=== PATIENT | male | born 1935 | race Caucasian/White ===

== ENCOUNTER 2016-10-30 12:42 | Inpatient (IN) ==
[2016-10-30 13:59] LABS: MANUAL DIFF NEEDED? NO
[2016-10-30 14:05] LABS: BASO% 0.2 % (0.0-0.8); EOS# 0.04 X1000 (0.0-0.7); EOS% 0.3 % (0.0-10.0); HEMATOCRIT 41.4 % (42.0-52.0); HEMOGLOBIN 14.4 g/dL (14.0-18.0); IMM GRAN# 0.04 X1000 (0.0-0.04); IMM GRAN% 0.3 % (0.0-0.5); LYMPH# 1.89 X1000 (1.2-3.4); LYMPH% 12.9 % (20.5-51.1); MCH 30.2 PG (27-31); MCHC 34.8 g/dL (33-37); MCV 86.8 FL (81-99); MONO# 1.62 X1000 (0.11-0.59); MONO% 11.1 % (1.7-9.3); MPV 9.5 FL (7.4-10.4); NEUT% 75.2 % (42.2-75.2); PLT 209 X1000 (130-400); RBC 4.77 XMIL (4.7-6.1)
--- NOTE | 2016-10-30 14:05 | Diag Imaging Result Doc PS360 ---
KNEE 3 VIEWS LEFT - 10/30/2016 INDICATION: fall with left knee injury TECHNIQUE: COMPARISON: None FINDINGS: There is a huge joint effusion. There is significant chondrocalcinosis of the menisci. Alignment is anatomic. No obvious fractures. Joint spaces are fairly well preserved. IMPRESSION: Huge nonspecific joint effusion. This could represent internal derangement, inflammatory arthritis, gout or pseudogout, septic arthritis, or neoplastic conditions. Correlate clinically. Electronically signed by Jorge Guadalupe 10/30/2016 2:03 PM
--- NOTE | 2016-10-30 14:06 | Diag Imaging Result Doc PS360 ---
ANKLE COMPLETE LEFT - 10/30/2016 INDICATION: fall with left ankle injury TECHNIQUE: Three views COMPARISON: None FINDINGS: There are bulky degenerative heel spurs. No obvious fracture or dislocation. There is some mild nonspecific pedal edema. IMPRESSION: Nonspecific findings. Electronically signed by Jorge Guadalupe 10/30/2016 2:04 PM
--- NOTE | 2016-10-30 14:07 | Diag Imaging Result Doc PS360 ---
XRAY HIP UNILATERAL LT - 10/30/2016 INDICATION: fall with left hip injury TECHNIQUE: Two views COMPARISON: None FINDINGS: Bones are intact and normally aligned. There is advanced vascular disease with superficial femoral artery calcification. There is mild hip osteoarthritis. IMPRESSION: No acute disease. Electronically signed by Jorge Guadalupe 10/30/2016 2:04 PM
--- NOTE | 2016-10-30 14:10 | PROVIDER DOCUMENTATION ---
This chart was entered by Sachi Jaramillo Scribe, acting as scribe for Vic Edwards MD. HPI-Musculoskeletal Pain/Inj - GENERAL Chief Complaint: Fall Stated Complaint: FALL Time Seen by Provider: 10/30/16 12:53 Source: patient - HX OF PRESENT ILLNESS-MUSKULOSKELTAL Nature of Presenting Problem: 81 year old male presents to the ER via EMS with complaint of leg injury due to fall. Pt states that he tripped over a rug yesterday and landed on left side of lower body. Pt is unable to put any weight on left lower extremity. Pt has swelling of left knee and left ankle. Onset/Duration: 24 hours ago Timing: still present - FALL INJURY Location of Pain/Injury: reports: lower extremity (left - knee/ankle) Injury Associated Symptoms: reports: joint pain (left knee effusion/swelling of left ankle), trouble walking - LOWER EXTREMITY PAIN/INJURY Lower Extremities Pain: knee: right, ankle: right Review of Systems - Adult - REVIEW OF SYSTEMS - ADULT Constitutional: denies: chills, fever Eyes: reports: no symptoms reported Ears, Nose, Mouth & Throat: reports: no symptoms reported Cardiovascular: reports: no symptoms reported Respiratory: reports: no symptoms reported Gastrointestinal: reports: no symptoms reported Genitourinary: reports: no symptoms reported Musculoskeletal: reports: joint pain, joint swelling (left knee/left ankle) Integumentary: reports: no symptoms reported Neurological: reports: no symptoms reported Psychiatric: reports: no symptoms reported Endocrine: reports: no symptoms reported Hematologic/Lymphatic: reports: no symptoms reported Allergic/Immunologic: reports: no symptoms reported All Other Systems: Reviewed and Negative Past History - Adult - PAST MEDICAL HISTORY-ADULT Review of Records: reports: Nursing Assessment Review, Medications Reviewed - IMMUNIZATION STATUS Childhood Immunizations: See Nurse Assessment Flu Vaccine: See Nurse Assessment Physical Exam-Injury Related - Physical Exam-Injury Related General Appearance: alert, no apparent distress Eyes: PERRL/EOMI, pink conjunctivae Head, Ears, Nose, Mouth & Throat: normocephalic/atraumatic, moist mucous membranes Neck: supple, normal inspection Respiratory: lungs clear, normal breath sounds Cardiovascular: normal peripheral pulses, regular rate, rhythm Abdominal Exam: non tender, soft Back Exam: no CVA tenderness, no vertebral tenderness Extremity: joint effusion (left knee), swelling (left ankle) Integumentary: normal color, warm/dry Neurologic: grossly normal, no motor/sensory deficits Psych/Mental Status: normal mood/affect, normal thought content, normal thought process, oriented x 3 Progress - PLAN OF CARE/RESULTS Progress/Plan/Lab Results: Vital Signs - 8 hr 10/30/16 12:45 Temperature 97.9 F Pulse Rate 75 Respiratory Rate 25 H Blood Pressure 174/86 O2 Sat by Pulse Oximetry 95 Laboratory Results - last 24 hr 10/30/16 13:48 WBC 14.65 H RBC 4.77 Hgb 14.4 Hct 41.4 L MCV 86.8 MCH 30.2 MCHC 34.8 RDW Std Deviation 14.1 Plt Count 209 MPV 9.5 Immature Gran % (Auto) 0.3 Neut % (Auto) 75.2 Lymph % (Auto) 12.9 L [place] % (Auto) 11.1 H Eos % (Auto) 0.3 Baso % (Auto) 0.2 Immature Gran # (Auto) 0.04 Neut # (Auto) 11.03 H Lymph # (Auto) 1.89 [place] # (Auto) 1.62 H Eos # (Auto) 0.04 Baso # (Auto) 0.03 Orders Category Date Time Status ANKLE COMPLETE LEFT [RAD] Stat Exams 10/30/16 13:13 Completed KNEE 3 VIEWS LEFT [RAD] Stat Exams 10/30/16 13:12 Completed XRAY HIP UNILATERAL LT [RAD] Stat Exams 10/30/16 13:14 Completed CBC WITH DIFF [HEME] Stat Lab 10/30/16 13:48 Completed CMP [COMPREHENSIVE METABOLIC PANEL] [CHEM] Stat Lab 10/30/16 13:48 Received Result Diagrams: 10/30/16 13:48 - CONSULTS/PCP/HOSPITALIST Notification #1 *Consult/PCP/Hospitalist*: Dr. Dockery ([facility]) Time Discussed: 14:08 Consult Disposition: Will see in ED - CHANGE OF SHIFT REPORT (ED Provider) Report Given and Care Transferred to:: Discussed this patient with Dr. St also. Departure - Departure Date of Disposition Decision: 10/30/16 Time of Disposition Decision: 14:08 DIAGNOSIS: Traumatic joint effusion Disposition: STILL A PATIENT 30 Certified Medical Emergency: Emergent Condition: Good Referrals and Follow-Ups: Perez Acosta [Primary Care Provider] - - Critical Care Note This patient required my direct & personal management of CC.: No This chart was documented by the indicated scribe, (Sachi Jaramillo, Scribe) and accurately reflects the services I performed and decisions made by me, Vic Edwards MD, as attested by the provider's signature.
[2016-10-30 14:25] LABS: AGAP 14; ALBUMIN 3.7 g/dL (3.5-5.0); ALKALINE PHOSPHATASE 101 U/L (32-122); BUN 13 mg/dL (8-22); CHLORIDE 94 mmol/L (98-107); COSMO 268; GOT 13 U/L (10-34); GPT 12 U/L (10-44); POTASSIUM 4.5 mmol/L (3.5-5.1); SODIUM 130 mmol/L (136-145); TCO2 22 mmol/L (25-35); TOTAL BILIRUBIN 0.72 mg/dL (0.20-1.00); TOTAL PROTEIN 6.8 g/dL (6.3-8.3)
[2016-10-30] MEDS: NORCO-7.5 PO ONE ×2 (14:25→16:40)
[2016-10-30] MEDS ORDERED: DILAUDID IV ONE (15:21)
--- NOTE | 2016-10-30 16:06 | HISTORY AND PHYSICAL ---
PRIMARY CARE PHYSICIAN: Dr. Acosta. CHIEF COMPLAINT: Knee pain after a fall. HISTORY OF PRESENT ILLNESS: Mr. Mandel is a 81-year-old male with a past medical history of diabetes, high blood pressure, coronary artery disease, diabetic neuropathy and peripheral vascular disease who presents to the ER at date of admission after having a fall prior to arrival. He reports that with a fall, he did slip, he did not lose consciousness or have a syncopal episode. He slipped on a rug and fell backwards causing an awkward movement and strain of his left knee. He did not land on his knee, he landed on his right hip, but continues to have pain to the left knee with a large amount of swelling as well with limited mobility. He was evaluated in the ER and is unable to provide pain control with the p.o. medications that have been given or the morphine by EMS, and had x-ray images which did not show a fracture, but does also corroborate with a huge joint effusion and therefore, patient will be admitted for further evaluation and treatment and orthopedic will be consulted for possible arthrocentesis and evaluation and for pain control. PAST MEDICAL HISTORY: 1. Diabetes. 2. Hypertension. 3. Coronary artery disease. 4. Neuropathy. 5. Diabetic retinopathy. 6. Peripheral vascular disease. 7. Questionable gout. Patient is on allopurinol, but denied history of gout. PAST SURGICAL HISTORY: 1. Cholecystectomy. 2. Right knee arthroscopy. 3. Cyst removed from his back. SOCIAL HISTORY: Patient smokes a pack and a half a day. He denies any alcohol or drug use. He does live with his . FAMILY HISTORY: His father did have a history of gout. ALLERGIES: No known drug allergies. MEDICATIONS: 1. Tramadol 100 mg p.o. q.4 hours p.r.n. pain. 2. Janumet 50-500 1 p.o. b.i.d. 3. Pentoxifylline 400 mg p.o. t.i.d. 4. Toprol-XL 50 mg p.o. daily. 5. Lisinopril 20 mg p.o. daily. 6. Isosorbide 30 mg p.o. daily. 7. Levemir 40 units subcutaneously at bedtime. 8. Glimepiride 4 mg p.o. daily. 9. Vytorin 10-10, 1 p.o. daily. 10. Plavix 75 mg p.o. daily. 11. Aspirin 81 mg p.o. daily. 12. Allopurinol 100 mg p.o. daily. 13. Lipitor 10 mg p.o. daily. REVIEW OF SYSTEMS: Ten point review of system reviewed and negative other than as stated in HPI. LABORATORIES AND DIAGNOSTICS: CBC: White count 14.65, hemoglobin and hematocrit 14.4 and 41.4, platelets 209,000. BMP: Sodium 130, potassium 4.5, chloride 94, CO2 22, BUN 13, creatinine 0.6, glucose 226, LFTs within normal limits. Left knee x-ray showed a hug nonspecific joint effusion that could represent internal derangement, inflammatory arthritis, gout or pseudogout, septic arthritis or neoplastic conditions, but correlate clinically. Left ankle x-ray showed nonspecific findings and left hip x-ray showed some arthritis, but no acute abnormality. PHYSICAL EXAMINATION: VITAL SIGNS: Temperature 97.9 degrees, pulse 75, respirations 25, blood pressure 174/86, O2 saturation 95% on room air. HEENT: Normocephalic, atraumatic. Mucous membranes moist. NECK: Supple. No JVD. CHEST: Bilateral breath sounds clear. Respirations unlabored. No accessory muscle use noted. CARDIOVASCULAR: Normal S1, S2. ABDOMEN: Abdomen is soft, nontender, nondistended. Positive bowel sounds. EXTREMITIES: Large effusion with limited mobility to left knee. Mild warmth, but no other discoloration noted. Pedal pulses palpated. Slightly delayed capillary refill with history of peripheral vascular disease. Right elbow with superficial abrasions and skin tear, but no difficulty with range of motion or other extremity injuries. NEUROLOGIC: Patient is alert and oriented x4. No neurological deficits noted. ASSESSMENT AND PLAN: 1. Left knee effusion. I will consult Orthopedics for possible arthrocentesis for evaluation and treatment. 2. Fall. We will place patient on fall precautions and continue to follow. May need physical therapy. 3. Significant knee pain and changes with x-ray. The question is if this is related to traumatic effusion. he does take allopurinol which he denies a known history of gout and he also has several nodularities to his distal interphalangeal and proximal interphalangeal joints with his hand, and has a family history of gouty arthritis. We will go ahead and check several other causes of inflammatory arthritis as well. 4. Hypertension. We will continue his medications. 5. Diabetes. We will continue his medications and place on sliding scale insulin. 6. Hyponatremia. We will give IV hydration. 7. Leukocytosis. We will continue to follow. He has not had any fever or chills and this all was related after the injury. 8. Coronary artery disease. Patient is on Plavix which could cause a worsening effusion to his knee. 9. Family history of gout. Aware. Further orders pending physician evaluation. Dictated by CHAVEZ Villrareal for Satish Guardado MD cc: CHAVEZ Villarreal MD
[2016-10-30] MEDS: ZOFRAN IV PRN (16:39)
[2016-10-30] MEDS ORDERED: ZOFRAN IV PRN (16:55)
[2016-10-30 17:24] LABS: URIC ACID 2.7 mg/dL (3.4-7.0)
[2016-10-30] MEDS: HUMULIN R SUBQ SCH ×2 (18:16→21:30)
[2016-10-30] MEDS: TRENTAL PO SCH (18:17)
[2016-10-30] MEDS: NS 1,000 ML IV SCH (18:17)
[2016-10-30] MEDS: LOVENOX SUBQ SCH (18:18)
[2016-10-30] MEDS: NORCO-10 PO PRN (21:48)
[2016-10-30] MEDS: LEVEMIR SUBQ SCH (21:55)
[2016-10-31] MEDS: HUMULIN R SUBQ SCH ×4 (06:24→21:09)
[2016-10-31 06:39] LABS: HEMATOCRIT 43.5 % (42.0-52.0); HEMOGLOBIN 14.3 g/dL (14.0-18.0); MCH 29.8 PG (27-31); MCHC 32.9 g/dL (33-37); MCV 90.6 FL (81-99); MPV 9.4 FL (7.4-10.4); RBC 4.8 XMIL (4.7-6.1)
[2016-10-31 06:44] LABS: INR 1.06; PROTIME 11.2 Seconds (9.2-11.7); PTT 31.9 Seconds (22.0-36.0)
[2016-10-31 06:59] LABS: AGAP 12; BUN 11 mg/dL (8-22); CALCIUM 9.1 mg/dL (8.8-10.2); CHLORIDE 94 mmol/L (98-107); COSMO 267; POTASSIUM 4.5 mmol/L (3.5-5.1); SODIUM 132 mmol/L (136-145); TCO2 26 mmol/L (25-35)
[2016-10-31] MEDS: NS 1,000 ML IV SCH ×2 (08:26→23:24)
[2016-10-31] MEDS: TOPROL XL PO SCH (08:27)
[2016-10-31] MEDS: ZETIA PO SCH (08:27)
[2016-10-31] MEDS: IMDUR PO SCH (08:27)
[2016-10-31] MEDS: PLAVIX PO SCH (08:27)
[2016-10-31] MEDS: TRENTAL PO SCH ×3 (08:27→18:04)
[2016-10-31] MEDS: ZYLOPRIM PO SCH (08:27)
[2016-10-31] MEDS: PRINIVIL PO SCH (08:27)
[2016-10-31] MEDS: ZOCOR PO SCH (08:27)
[2016-10-31] MEDS: LIPITOR PO SCH (08:27)
[2016-10-31] MEDS: ASPIRIN EC PO SCH (08:27)
[2016-10-31] MEDS ORDERED: EZETIMIBE PO SCH (09:00)
[2016-10-31] MEDS ORDERED: SIMVASTATIN PO SCH (09:00)
[2016-10-31] MEDS: DILAUDID IV PRN (11:24)
[2016-10-31] MEDS: ZOFRAN IV PRN (11:24)
--- NOTE | 2016-10-31 16:42 | PROGRESS NOTE ---
DATE: 10/31/2016 SUBJECTIVE: This patient is still complaining of left knee pain and swelling. Otherwise, he is alert and oriented x3. No focal neurological deficits. This patient states that yesterday he was walking and he fell and hit his left knee and left ankle. Orthopedic surgery has been consulted for this. OBJECTIVE: Vital Signs: Temperature 98.9 degrees, pulse 79, respiratory rate 20, blood pressure 141/59, oxygen saturation 93 on room air. HEENT: Head normocephalic. No trauma. PERRLA. Neck: Supple. No JVD. No masses. Central trachea. Chest: Clear to auscultation. No wheezing. No rales. Abdomen: Soft, nontender, nondistended. No hepatosplenomegaly. Extremities: Left knee and ankle swelling. No clubbing. No cyanosis. Neurological: The patient is alert and oriented x3. No focal deficits. LABORATORY: WBC 11.8, hemoglobin 14.3, platelet 179,000. Sodium 132, potassium 4.5, chloride 94, bicarbonate 26, BUN 11, creatinine 0.7, glucose 153, calcium 9.1. ASSESSMENT AND PLAN: 1. Left knee swelling. Orthopedic surgery has been consulted. Probably this patient will need an arthrocentesis. 2. Hypertension. Continue with his medications. 3. Diabetes. Continue with his medications and sliding scale insulin. 4. Hyponatremia. Continue with IV fluids. This is getting better. 5. Leukocytosis. Also is getting better. He is not receiving any antibiotics. Likely reactive. 6. History of coronary artery disease. Patient is on aspirin. Also this patient is on Plavix and this is likely secondary to peripheral vascular disease. 7. Peripheral vascular disease. As above. 8. Family history of gout. Aware. cc: Satish Guardado MD
[2016-10-31] MEDS: LOVENOX SUBQ SCH (18:04)
--- NOTE | 2016-10-31 18:14 | CONSULTATION ---
DATE OF CONSULTATION: 10/31/2016 HISTORY OF PRESENT ILLNESS: Ruben Mandel is a 81-year-old male who complains of left hip, knee and ankle pain with a left knee effusion. He complains of inability to weight bear. PHYSICAL EXAMINATION: General: Well-developed, well-nourished male. He is alert and cooperative. Hip: Examination reveals mild pain with range of motion of his hip and ankle. He has a large effusion of his left knee and pain with range of motion. X-rays of his hip and ankle show no significant abnormalities and some mild degenerative changes. X-rays of his knee show chondrocalcinosis and a large knee effusion. IMPRESSION: Left leg contusion with effusion overlying osteoarthritis of the left knee. PLAN: Today I have aspirated his knee and removed approximately 50 mL of bloody fluid. We will get physical therapy to work on him for range of motion and weightbearing. He may need to go to rehab. cc: Angel Singh MD
[2016-10-31] MEDS ORDERED: TUMS PO ONE (20:36)
[2016-11-01] MEDS: LEVEMIR SUBQ SCH ×2 (02:49→21:02)
[2016-11-01 05:49] LABS: MANUAL DIFF NEEDED? NO
[2016-11-01 05:58] LABS: BASO% 0.4 % (0.0-0.8); EOS# 0.02 X1000 (0.0-0.7); EOS% 0.2 % (0.0-10.0); HEMOGLOBIN 14.2 g/dL (14.0-18.0); IMM GRAN# 0.05 X1000 (0.0-0.04); IMM GRAN% 0.4 % (0.0-0.5); LYMPH# 1.29 X1000 (1.2-3.4); LYMPH% 10.5 % (20.5-51.1); MCH 29.3 PG (27-31); MCV 88.8 FL (81-99); MONO# 1.99 X1000 (0.11-0.59); MONO% 16.2 % (1.7-9.3); MPV 9.4 FL (7.4-10.4); NEUT% 72.3 % (42.2-75.2); PLT 181 X1000 (130-400); RBC 4.84 XMIL (4.7-6.1)
[2016-11-01 06:09] LABS: AGAP 16; BUN 10 mg/dL (8-22); CALCIUM 9.1 mg/dL (8.8-10.2); CHLORIDE 95 mmol/L (98-107); COSMO 270; POTASSIUM 4.3 mmol/L (3.5-5.1); SODIUM 133 mmol/L (136-145); TCO2 22 mmol/L (25-35)
[2016-11-01] MEDS: HUMULIN R SUBQ SCH ×4 (06:22→21:02)
[2016-11-01] MEDS ORDERED: TUMS PO ONE (06:23)
[2016-11-01] MEDS: DILAUDID IV PRN ×2 (06:30→19:15)
[2016-11-01] MEDS: ASPIRIN EC PO SCH (08:14)
[2016-11-01] MEDS: LIPITOR PO SCH (08:14)
[2016-11-01] MEDS: ZYLOPRIM PO SCH (08:15)
[2016-11-01] MEDS: ZETIA PO SCH (08:16)
[2016-11-01] MEDS: IMDUR PO SCH (08:16)
[2016-11-01] MEDS: PRINIVIL PO SCH (08:17)
[2016-11-01] MEDS: TOPROL XL PO SCH (08:17)
[2016-11-01] MEDS: ZOCOR PO SCH (08:17)
[2016-11-01] MEDS: PLAVIX PO SCH (08:17)
[2016-11-01] MEDS: TRENTAL PO SCH ×3 (08:17→18:11)
[2016-11-01] MEDS: ZOSYN 3.375 GM/NS 3.375 GM/50 ML IVPB IV SCH ×3 (08:34→21:02)
[2016-11-01] MEDS: NS 1,000 ML IV SCH ×2 (08:35→22:21)
[2016-11-01] MEDS ORDERED: G.I. COCKTAIL PO ONE (11:50)
[2016-11-01] MEDS ORDERED: DULCOLAX PR ONE (11:51)
[2016-11-01] MEDS: MIRALAX PO SCH ×2 (13:15→21:08)
--- NOTE | 2016-11-01 14:05 | Diag Imaging Result Doc PS360 ---
EXAM: THORAX/ABDOMEN/PELVIS W/O CONT INDICATION: leukocytosis TECHNIQUE: COMPARISON: CT abdomen and pelvis dated 03/10/2015. No prior chest CT is available for comparison. FINDINGS: CHEST: There is bilateral pulmonary emphysema with apical predominance. There are several calcified granulomata bilaterally. There is bibasilar scarring versus subsegmental atelectasis. The lungs are grossly clear, otherwise. There is no pleural fluid collection and no pneumothorax. There are multiple calcified mediastinal and hilar lymph nodes indicating prior granulomatous disease. There is no evidence of significant lymphadenopathy, otherwise. The heart is not enlarged. ABDOMEN/PELVIS: There are multiple calcified granulomata in the liver and spleen. There has been a previous cholecystectomy. The liver and spleen are grossly unremarkable, otherwise. The pancreas appears normal. The adrenal glands are unremarkable. There is a stable small left renal cyst. There are a few nonobstructing intrarenal stones at the medial aspect of the left kidney versus vascular calcifications. There is no hydronephrosis. The urinary bladder is unremarkable. The appendix is normal. There is no evidence of bowel obstruction. The remainder of the GI tract is essentially unremarkable. No focal inflammatory changes, free abdominal gas, or free fluid is appreciated. There are degenerative changes involving the spine. Bony structures are grossly intact, otherwise. IMPRESSION: 1.Pulmonary emphysema and bibasilar scarring and/or atelectasis but no evidence of acute chest pathology. 2.Incidental/nonacute abdominal and pelvic findings. No evidence of acute pathology. Electronically signed by Vladimir Kemp 11/01/2016 2:02 PM
--- NOTE | 2016-11-01 14:11 | Diag Imaging Result Doc PS360 ---
EXAM: EXTREM LOWER W/O CONTRAST INDICATION: left knee swelling/effusion TECHNIQUE: COMPARISON: None. FINDINGS: There is a moderate-sized joint effusion. There is extensive chondrocalcinosis. Although nonspecific, this is often associated with calcium pyrophosphate deposition disease (CPPD). There is a prominent popliteal cyst. There are degenerative subcortical cysts at the medial tibial plateau. There are at least mild degenerative changes at the patellofemoral compartment as well. There is no evidence of acute fracture, dislocation, or intrinsic osseous lesion, otherwise. IMPRESSION: 1.Extensive chondrocalcinosis, which is often associated with CPPD. 2.Degenerative arthropathy, mainly at the medial and patellofemoral compartments. 3.Moderate-sized joint effusion. Electronically signed by Vladimir Kemp 11/01/2016 2:09 PM
[2016-11-01] MEDS: ZOFRAN IV PRN ×2 (15:09→19:16)
--- NOTE | 2016-11-01 15:19 | PROGRESS NOTE ---
DATE: 11/01/2016 SUBJECTIVE: The patient complains of continued pain in his left knee. He had the left knee aspirated yesterday. He states that he can barely put weight on it and it still swollen this morning. OBJECTIVE: Vital Signs: Temperature. 98.3, blood pressure 124/63, heart rate 91, respirations 18, O2 saturations 96% on room air. General: This is an elderly female, lying in bed, in no acute distress. Head: Normocephalic, atraumatic. Heart: S1, S2. Normal. Tachycardic. Lungs: Clear to auscultation bilaterally. No wheezing. No rales. No rhonchi. Abdomen: Positive bowel sounds. Soft, nontender, nondistended. Extremities: The patient does have an effusion in the left knee. Neurologic: The patient is alert and oriented x3. LABORATORY: White blood cell count 12, hemoglobin 14, hematocrit 43, platelets 181,000. Sodium 133, potassium 4.3, chloride 95, CO2 22, BUN 10, creatinine 0.6, glucose 179. IMAGING: CT of the left lower extremity reveals a moderate-sized left knee effusion and extensive chondrocalcinosis. CT of the chest, abdomen, and pelvis reveals emphysema and bibasilar scarring. ASSESSMENT AND PLAN: 1. Moderate left knee effusion. The patient had joint aspiration done yesterday. The patient continues to complain of pain and swelling in his left knee. We will await further recommendations from the orthopedic surgeon. I will go ahead and start the patient on IV antibiotic therapy due to the leukocytosis. 2. Gastroesophageal reflux disease. We will start the patient on omeprazole. 3. Constipation. We will start the patient on scheduled laxative therapy. 4. Emphysema. Aware. 5. Diabetes mellitus type 2. Continue on Levemir plus sliding scale insulin. 6. Hypertension. Controlled. 7. History of gout. The patient's uric acid is 2.7. We will continue to monitor closely. Continue on allopurinol. 8. Continue with physical therapy. cc: Brii Hudson MD
--- NOTE | 2016-11-01 16:18 | PROGRESS NOTE ---
DATE: 11/01/2016 SUBJECTIVE: Mr. Mandel is a 81-year-old male who is 2 days post aspiration of his left knee. He states he has continued pain and his knee is still swollen and stiff. Otherwise he is doing well. OBJECTIVE: On physical examination, he is a well-developed, well-nourished male. He is alert and cooperative with examination. He has an effusion of his left knee but it is very mild. He has limited range of motion of his left knee due to pain. His left leg is neurovascularly intact. IMPRESSION: Left leg contusion with effusion. Overlying osteoarthritis of left knee. PLAN: We will continue working with him with Physical Therapy for range of motion of his left knee and for weightbearing. We will continue to monitor his knee. Dictated by FARAZ Smith for Angel Singh MD cc: FARAZ Smith MD
[2016-11-01] MEDS: LOVENOX SUBQ SCH (18:11)
[2016-11-01 18:46] LABS: URINE CULTURE NEEDED? NO; URINE MICRO REVIEW NEEDED? NO; URINE SOURCE CLEAN CATCH
[2016-11-01 18:58] LABS: BILIRUBIN URINE NEGATIVE (NEGATIVE); BLOOD URINE MODERATE (NEGATIVE); COLOR YELLOW; GLUCOSE URINE >1000 mg/dL (NEGATIVE); LEUKOCYTES URINE NEGATIVE (NEGATIVE); NITRITE URINE NEGATIVE (NEGATIVE); PROTEIN URINE 50 mg/dL (NEGATIVE); SP GRAVITY URINE 1.031; TURBIDITY URINE CLEAR (CLEAR); UROBILINOGEN URINE NORMAL (NORMAL)
[2016-11-01 19:00] LABS: UR EPITHELIAL CELLS <10 /HPF (<10); URINE BACTERIA NEGATIVE /HPF; URINE WBC <10 /HPF (<10)
[2016-11-01] MEDS: SENOKOT PO SCH (21:03)
[2016-11-02] MEDS: NS 1,000 ML IV SCH (01:18)
[2016-11-02] MEDS: ZOSYN 3.375 GM/NS 3.375 GM/50 ML IVPB IV SCH ×3 (01:59→15:02)
[2016-11-02 05:52] LABS: MANUAL DIFF NEEDED? NO
[2016-11-02 05:55] LABS: BASO% 0.2 % (0.0-0.8); EOS# 0.01 X1000 (0.0-0.7); EOS% 0.1 % (0.0-10.0); HEMATOCRIT 43.4 % (42.0-52.0); HEMOGLOBIN 14.4 g/dL (14.0-18.0); IMM GRAN# 0.03 X1000 (0.0-0.04); IMM GRAN% 0.2 % (0.0-0.5); LYMPH# 1.39 X1000 (1.2-3.4); LYMPH% 9.4 % (20.5-51.1); MCH 29.5 PG (27-31); MCHC 33.2 g/dL (33-37); MCV 88.9 FL (81-99); MONO# 1.83 X1000 (0.11-0.59); MONO% 12.4 % (1.7-9.3); MPV 9.6 FL (7.4-10.4); NEUT% 77.7 % (42.2-75.2); PLT 230 X1000 (130-400); RBC 4.88 XMIL (4.7-6.1)
[2016-11-02 06:15] LABS: AGAP 15; BUN 20 mg/dL (8-22); CALCIUM 8.9 mg/dL (8.8-10.2); CHLORIDE 98 mmol/L (98-107); COSMO 280; SODIUM 136 mmol/L (136-145); TCO2 23 mmol/L (25-35)
[2016-11-02] MEDS: HUMULIN R SUBQ SCH ×4 (06:38→20:38)
[2016-11-02] MEDS: PRILOSEC PO SCH (06:50)
[2016-11-02] MEDS: ZOFRAN IV PRN ×2 (07:42→11:37)
--- NOTE | 2016-11-02 08:07 | Diag Imaging Result Doc PS360 ---
EXAM: CHEST-PORTABLE - 11/02/2016 HISTORY: chest tightness/ shortness of breath TECHNIQUE: Portable chest 0800 COMPARISON: None. FINDINGS: Heart size is normal. There is mild elevation of the left hemidiaphragm. There are possible COPD changes. 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 There is minimal linear atelectasis or scarring at the left base. There is no consolidation, vascular congestion, pleural effusion, or pneumothorax identified. IMPRESSION: Apparent COPD. Mild elevation of left hemidiaphragm with minimal left basilar linear atelectasis or scarring. No other evidence of acute disease. Electronically signed by Moiz Morales 11/02/2016 8:05 AM
[2016-11-02 08:12] LABS: ALLEN TEST YES; BE -1.7 mmoll (-3.0-3.0); BLOOD TYPE ARTERIAL; DRAW SITE R RADIAL; METHB 0.7 % (0.0-1.5); O2(CT) 19.3 mL/dL (15.0-23.0); PCO2(98.6) 34 mmHg (35-45); PO2(98.6) 69 mmHg (60-100); SAMPLE BLOOD; SAO2 96.3 % (95.0-100.0); THB 14.7 g/dL (11.5-17.4); pH(98.6) 7.42 (7.35-7.45)
[2016-11-02 08:14] LABS: MODALITY CANNULA
[2016-11-02] MEDS: TRENTAL PO SCH ×3 (10:08→17:42)
--- NOTE | 2016-11-02 10:31 | EKG Report ---
Test Performed on : 11/02/2016 08:02:04 AM Test Reason : chest tightness/ shortness of breath Blood Pressure : / mmHG Vent. Rate : 092 BPM Atrial Rate : 092 BPM P-R Int : 136 ms QRS Dur : 092 ms QT Int : 396 ms P-R-T Axes : 078 054 097 degrees QTc Int : 489 ms Normal sinus rhythm. Nonspecific ST and T wave abnormality Prolonged QT Abnormal ECG When compared with ECG of 21-OCT-2010 10:10, ST now depressed in Anterior leads Nonspecific T wave abnormality now evident in Anterolateral leads Confirmed by Roz Goins MD ([id number]) on 11/02/2016 1:40:45 PM
[2016-11-02] MEDS ORDERED: DULCOLAX PR ONE (11:24)
--- NOTE | 2016-11-02 11:42 | PROGRESS NOTE ---
DATE: 11/02/2016 SUBJECTIVE: Mr. Mandel is a 81-year-old male, who is 3 days postop aspiration of his left knee. Today he states he is doing much better. He is able to move his knee better. OBJECTIVE: General: He is a well developed, well nourished male. He is alert and cooperative with the examination. He is in no acute distress. Extremities: He has an effusion of his left knee. It is very mild and has improved. He has improved range of motion of his left knee. His left leg is neurovascularly intact. IMPRESSION: Left leg contusion with infusion with overlying osteoarthritis of the left knee. PLAN: We will continue working with him with physical therapy for range of motion of his left knee. He can be transferred to rehab or home whenever he is medically stable. We will have him follow up with Dr. Singh in 2 weeks for follow up examination. Dictated by FARAZ Smith for Angel Singh MD cc: FARAZ Smith MD
[2016-11-02] MEDS ORDERED: MIRALAX PO ONE ×2 (13:41→15:15)
[2016-11-02] MEDS ORDERED: RELISTOR SUBQ ONE (13:42)
[2016-11-02] MEDS: MIRALAX PO SCH ×2 (15:05→20:39)
[2016-11-02] MEDS: LACTULOSE PO SCH ×3 (15:07→20:45)
[2016-11-02] MEDS: IMDUR PO SCH (15:11)
[2016-11-02] MEDS: PRINIVIL PO SCH (15:11)
[2016-11-02] MEDS: TOPROL XL PO SCH (15:11)
[2016-11-02] MEDS: ASPIRIN EC PO SCH (15:11)
[2016-11-02] MEDS: ZYLOPRIM PO SCH (15:12)
[2016-11-02] MEDS: PLAVIX PO SCH (15:12)
[2016-11-02] MEDS: ZOCOR PO SCH (15:12)
[2016-11-02] MEDS: ZETIA PO SCH (15:12)
[2016-11-02] MEDS: LIPITOR PO SCH (15:12)
--- NOTE | 2016-11-02 15:56 | PROGRESS NOTE ---
DATE: 11/02/2016 SUBJECTIVE: The patient states that the pain in his left knee he is a lot better today. However he does complain of nausea and vomiting. He states that he still has not had a bowel movement despite receiving oral laxatives. OBJECTIVE: Vital Signs: Temperature 98.5 degrees, blood pressure 152/50, heart rate 95, respirations 19, O2 saturations 96% on 2 L nasal cannula. General: This is an elderly male lying in bed in no acute distress. Head: Normocephalic, atraumatic. Heart: S1, S2. Normal. Regular rate and rhythm. Lungs: Clear to auscultation bilaterally. No crackles. No rales. Abdomen: Positive bowel sounds. Soft, nontender, nondistended. Extremities: The patient does have swelling involving the left knee. Neurologic: The patient is alert and oriented x3. LABS: White blood cell count 14, hemoglobin 14, hematocrit 43, platelets 230,000. Sodium 136, potassium 4, chloride 98, CO2 23, BUN 20, creatinine 0.6, glucose 189, calcium 8.9. ASSESSMENT AND PLAN: 1. Left knee effusion. Slowly improving. Continue with physical therapy. 2. Leukocytosis. The patient does not have an active source of infection so this may be reactive in nature. Will discontinue the Zosyn and repeat the patient's white blood cell count tomorrow. 3. Constipation. Continue with scheduled laxative therapy. Will ask Dr. Liao to see the patient for further recommendations. 4. Diabetes mellitus type 2. Continue on sliding scale insulin. 5. Gastroesophageal reflux disease. Continue on Prilosec. 6. History of gout. Continue on allopurinol. 7. Continue with physical therapy. 8. Disposition. The patient will be discharged to rehab once a bed is available and the patient is medically stable. cc: Brii Hudson MD
--- NOTE | 2016-11-02 16:41 | Diag Imaging Result Doc PS360 ---
EXAM: KUB ABDOMEN - 11/02/2016 HISTORY: constipation, n/v TECHNIQUE: Portable AP supine abdomen 1436 COMPARISON: None. FINDINGS: There is some gas visible in nondistended colon. There is gas visible within a couple of nondistended to slightly distended small bowel loops. There is no substantial gaseous small bowel distention identified. There is no obvious excessive retained fecal debris in the colon. There are surgical clips at the right upper quadrant. IMPRESSION: Nonspecific bowel gas pattern. No obvious excessive retained fecal debris in the colon. Electronically signed by Moiz Morales 11/02/2016 4:39 PM
[2016-11-02] MEDS: LOVENOX SUBQ SCH (17:42)
[2016-11-02] MEDS: LEVEMIR SUBQ SCH (20:38)
[2016-11-02] MEDS: SENOKOT PO SCH ×2 (20:39→20:45)
[2016-11-02] MEDS: DILAUDID IV PRN (20:46)
[2016-11-03] MEDS: PRILOSEC PO SCH ×2 (05:36→07:41)
[2016-11-03 05:47] LABS: MANUAL DIFF NEEDED? NO
[2016-11-03 05:52] LABS: BASO% 0.4 % (0.0-0.8); EOS# 0.06 X1000 (0.0-0.7); EOS% 0.4 % (0.0-10.0); HEMATOCRIT 42.4 % (42.0-52.0); HEMOGLOBIN 14.1 g/dL (14.0-18.0); IMM GRAN# 0.04 X1000 (0.0-0.04); IMM GRAN% 0.3 % (0.0-0.5); LYMPH# 1.55 X1000 (1.2-3.4); LYMPH% 10.8 % (20.5-51.1); MCH 29.6 PG (27-31); MCHC 33.3 g/dL (33-37); MCV 88.9 FL (81-99); MONO# 2.11 X1000 (0.11-0.59); MONO% 14.6 % (1.7-9.3); MPV 9.3 FL (7.4-10.4); NEUT% 73.5 % (42.2-75.2); PLT 238 X1000 (130-400); RBC 4.77 XMIL (4.7-6.1)
[2016-11-03] MEDS: HUMULIN R SUBQ SCH ×3 (06:04→16:15)
[2016-11-03 06:36] LABS: AGAP 12; BUN 25 mg/dL (8-22); CALCIUM 8.8 mg/dL (8.8-10.2); CHLORIDE 101 mmol/L (98-107); COSMO 282; POTASSIUM 3.8 mmol/L (3.5-5.1); SODIUM 138 mmol/L (136-145); TCO2 25 mmol/L (25-35)
[2016-11-03] MEDS: MIRALAX PO SCH ×2 (09:18→20:34)
[2016-11-03] MEDS: PRINIVIL PO SCH (09:19)
[2016-11-03] MEDS: ASPIRIN EC PO SCH (09:19)
[2016-11-03] MEDS: PLAVIX PO SCH (09:19)
[2016-11-03] MEDS: TRENTAL PO SCH ×3 (09:19→20:30)
[2016-11-03] MEDS: IMDUR PO SCH (09:19)
[2016-11-03] MEDS: LIPITOR PO SCH (09:19)
[2016-11-03] MEDS: TOPROL XL PO SCH (09:19)
[2016-11-03] MEDS: ZETIA PO SCH (09:19)
[2016-11-03] MEDS: LACTULOSE PO SCH ×2 (09:19→20:30)
[2016-11-03] MEDS: ZOCOR PO SCH (09:19)
[2016-11-03] MEDS: ZYLOPRIM PO SCH (09:19)
--- NOTE | 2016-11-03 14:13 | PROGRESS NOTE ---
DATE: 11/03/2016 SUBJECTIVE: Ruben Mandel is a 81-year-old male who is being seen for left leg pain, particularly left knee pain with effusion. He states it is improving. OBJECTIVE: He is a well-developed, well-nourished male. He is alert and cooperative with the exam. He has better range of motion today and minimal pain with range of motion. There is still a knee effusion. His leg is neurovascularly intact. ASSESSMENT: Left knee effusion and presence of severe arthritis of the left knee. PLAN: I have discussed with him that the only real treatment is a total knee arthroplasty. We are going to let him go to rehab and see if he progresses. We can consider injection, once things have calmed down. He will return to see me in 2 weeks for followup exam. cc: Angel Singh MD
--- NOTE | 2016-11-03 15:27 | PROGRESS NOTE ---
DATE: 11/03/2016 SUBJECTIVE: The patient continues to complain of abdominal pain. He did have a bowel movement yesterday. OBJECTIVE: Vital Signs: Temperature 98.5 degrees, blood pressure 163/67, heart rate 92, respirations 16, O2 saturations 97% on 2 L nasal cannula. General: This is an elderly male, lying in bed, in no acute distress. Head: Normocephalic, atraumatic. Heart: S1, S2. Normal. Regular rate and rhythm. Lungs: Clear to auscultation bilaterally. No wheezing. No rales. No rhonchi. Abdomen: Positive bowel sounds. Soft, nontender, nondistended. Extremities: Decreased swelling in the left knee. Neuro: The patient is alert and oriented x3. No focal neurologic deficits noted. LABS: White blood cell count 14, hemoglobin 14, hematocrit 42, platelets 238,000. Potassium 3.8, chloride 101, CO2 25, BUN 25, creatinine 0.6, glucose 129. ASSESSMENT AND PLAN: 1. Abdominal pain. The patient states that he did have a small bowel movement yesterday evening however he continues to complain of abdominal pain and mild nausea. 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 2. Hypertension. Continue on the current antihypertensive regimen. 3. Left knee effusion. Slowly improving. Continue with physical therapy. 4. Diabetes mellitus type 2. Continue on sliding scale insulin. 5. Constipation. Continue on scheduled laxative therapy. 6. Gastroesophageal reflux disease. Continue on Prilosec. 7. History of peripheral vascular disease. Continue on Plavix and aspirin. 8. Continue with physical therapy. cc: Brii Hudson MD
--- NOTE | 2016-11-03 15:40 | CONSULTATION ---
DATE OF CONSULTATION: 11/03/2016 REASON FOR REFERRAL: Abdominal pain, constipation, nausea and vomiting. HISTORY OF PRESENT ILLNESS: This is a 81-year-old, white male, who reports a fall over the weekend. He came into the emergency room for further evaluation. He has been seen by Dr. Singh who pulled fluid from the left knee. Physical therapy is also working with the patient. He states his knee pain is improving. Plans by Dr. Singh per his note are to continue with physical therapy and re-evaluate as an outpatient. Further plans will be made according to his progress. While in the hospital he had some episodes of nausea and vomiting. He has also had reported constipation and abdominal pain. He was given a laxative regimen yesterday. He states he has had 2 good bowel movements today, and his GI symptoms have much improved. He denies abdominal pain at present time. He has not had any further vomiting, and he did have 2 good bowel movements today. No reported blood in the stool or black stools. PAST MEDICAL HISTORY: Diabetes, hypertension, coronary artery disease, neuropathy, diabetic retinopathy, peripheral vascular disease, history of gout. PAST SURGICAL HISTORY: Cholecystectomy, right knee arthroscopy, cyst removed from his back. ALLERGIES: No known drug allergies. HOME MEDICATIONS: 1. Lipitor 10 mg daily. 2. Aspirin 81 mg daily. 3. Prinivil 20 mg daily. 4. Plavix 75 mg daily. 5. Allopurinol 100 mg daily. 6. Vytorin 1 daily. 7. Tramadol 100 mg every 4 hours as needed. 8. Janumet 1 twice daily. 9. Pentoxifylline 400 mg 3 times daily. 10. Levemir 40 units every night. 11. Isosorbide mononitrate 30 mg daily. 12. Glimepiride 4 mg daily. 13. Metoprolol 50 mg daily. SOCIAL HISTORY: He smokes 1-1/2 packs of cigarettes daily. Denies alcohol use. He is . REVIEW OF SYSTEMS: Per HPI. PHYSICAL EXAM: Vital Signs: Temperature 98.5 degrees, pulse 92, respirations 16, blood pressure 163/67. General: Patient is awake and alert, no acute distress. HEENT: Normocephalic, atraumatic. Pupils equal, round, reactive to light. Sclerae nonicteric. Cardiovascular: Regular rate and rhythm. Respiratory: Lung sounds essentially clear bilaterally. Abdomen: Soft, nontender. Positive bowel sounds. Extremities: Some edema to left knee. He has a Band- Aid in place from drainage of fluid by Dr. Singh. Neurological: Cranial nerves 2-12 grossly intact. Patient is awake, alert, oriented to person, place, and time. DIAGNOSTIC RESULTS: Laboratory: Hematology: White count 14.41, hemoglobin 14.1, hematocrit 42.4, MCV 88.9, platelet 238. Chemistry: Sodium 138, potassium 3.8, chloride 101, CO2 25, BUN 25, creatinine 0.6, glucose 129, C-reactive protein 25.69. ALEJANDRA was negative. Rheumatoid factor 14. X-RAY: Abdominal x-ray showed nonspecific bowel gas pattern. No obvious excess of retained fecal debris in the colon. Chest/abdomen/pelvis CT on 11/01 showed pulmonary emphysema and bibasilar scarring or atelectasis, but no evidence of acute chest pathology. Incidental nonacute abdominal and pelvic findings of granulomata in the liver and spleen. Stable left renal cyst. A few nonobstructing intrarenal stones. No hydronephrosis. No evidence of bowel obstruction. ASSESSMENT AND PLAN: 1. Recent fall. 2. Effusion of left knee with recent drainage following with Dr. Singh. 3. Recent nausea and vomiting. 4. Abdominal pain. 5. Constipation. Patient has had laxative regimen yesterday and has had 2 good bowel movements. His gastrointestinal symptoms have improved. He does not complain of any nausea or vomiting today. No reported abdominal pain. We will continue the laxative regimen as order. We will continue to follow. Further plans will be made as needed. I have discussed this case with Dr. Lemon. Thank you for this consult. Dictated by CHAVEZ Khan for Reji Lemon MD cc: CHAVEZ Dhaliwal MD
[2016-11-03] MEDS: LOVENOX SUBQ SCH ×2 (16:16→17:22)
[2016-11-03] MEDS: ZOFRAN IV PRN (18:05)
[2016-11-03] MEDS: DILAUDID IV PRN (18:05)
[2016-11-03] MEDS: SENOKOT PO SCH (20:30)
[2016-11-03] MEDS: LEVEMIR SUBQ SCH (20:30)
[2016-11-03] MEDS: NORCO-10 PO PRN (20:33)
[2016-11-04] MEDS: HUMULIN R SUBQ SCH ×5 (01:17→21:00)
[2016-11-04 06:19] LABS: AGAP 11; BUN 20 mg/dL (8-22); CALCIUM 8.5 mg/dL (8.8-10.2); CHLORIDE 98 mmol/L (98-107); COSMO 277; POTASSIUM 3.7 mmol/L (3.5-5.1); SODIUM 137 mmol/L (136-145); TCO2 28 mmol/L (25-35)
[2016-11-04] MEDS: TRENTAL PO SCH ×3 (08:47→16:54)
[2016-11-04] MEDS: TOPROL XL PO SCH (08:47)
[2016-11-04] MEDS: PLAVIX PO SCH (08:47)
[2016-11-04] MEDS: MIRALAX PO SCH ×2 (08:47→21:01)
[2016-11-04] MEDS: LACTULOSE PO SCH ×2 (08:47→21:00)
[2016-11-04] MEDS: IMDUR PO SCH (08:47)
[2016-11-04] MEDS: ASPIRIN EC PO SCH (08:47)
[2016-11-04] MEDS: PRINIVIL PO SCH (08:47)
[2016-11-04] MEDS: ZETIA PO SCH (08:48)
[2016-11-04] MEDS: ZOCOR PO SCH (08:48)
[2016-11-04] MEDS: LIPITOR PO SCH (08:48)
[2016-11-04] MEDS: PRILOSEC PO SCH (08:48)
[2016-11-04] MEDS: ZYLOPRIM PO SCH (08:50)
[2016-11-04] MEDS: NORCO-10 PO PRN ×2 (08:57→15:30)
--- NOTE | 2016-11-04 09:29 | Diag Imaging Result Doc PS360 ---
EXAM: ABDOMEN FLAT/UPRIGHT HISTORY: constipation TECHNIQUE: AP portable flat and upright at 0915 COMMENT: There is gas and stool in the colon without evidence of dilatation. There is gas in the rectum. The small bowel and stomach are not distended. There are surgical clips in the right upper quadrant. Compared to the previous study of 11/02/2016 there has been no significant change in the appearance of the abdomen and pelvis. IMPRESSION: Nonspecific abdomen. Electronically signed by Jose E Greene 11/04/2016 9:27 AM
[2016-11-04] MEDS ORDERED: DULCOLAX PR ONE (09:45)
--- NOTE | 2016-11-04 09:47 | PROGRESS NOTE ---
DATE: 11/04/2016 SUBJECTIVE: Mr. Mandel is a 81-year-old male who is being followed for left leg pain and left knee pain with effusion. He states that it is improving and he has better range of motion of his knee. OBJECTIVE: General: He is a well-developed, well-nourished male. He is alert and cooperative with the examination. He is in no acute distress. He has improved range of motion today and minimal pain with range of motion. The knee effusion has improved since yesterday but there is still minimal effusions. His left leg is neurovascularly intact. ASSESSMENT: Left knee effusion with presence of severe arthritis of the left knee. PLAN: We are going to have him follow up with Dr. Singh in two weeks for followup examination and we can consider an injection once his knee has calmed down. Dictated by FARAZ Smith for Angel Singh MD cc: FARAZ Smith MD MTDD
--- NOTE | 2016-11-04 15:57 | PROGRESS NOTE ---
DATE: 11/04/2016 SUBJECTIVE: The patient is resting comfortably in bed. He does complain of pain in his left knee. He was able to eat his breakfast without any difficulty. He has not had a bowel movement yet. OBJECTIVE: Vital Signs: Temperature 98.9 degrees, blood pressure 164/68, heart rate 79, respirations 16. O2 saturations 96% on room air. General: This is an elderly male, lying in bed, in no acute distress. Head: Normocephalic, atraumatic. Heart: S1, S2. Normal. Regular rate and rhythm. Lungs: Clear to auscultation bilaterally. No crackles. No rales. Abdomen: Positive bowel sounds. Soft, nontender, nondistended. Extremities: No edema. No cyanosis. Neurologic: The patient is alert and oriented. LABORATORY: Sodium 137, potassium 3.7, chloride 98, CO2 28, BUN 20, creatinine 0.5, glucose 110. ASSESSMENT AND PLAN: 1. Constipation. Continue with scheduled laxative therapy. 2. Hypertension. Stable. 3. Left knee effusion. Slowly improving. Continue physical therapy. 4. Diabetes mellitus type 2. Continue on sliding scale insulin. 5. Gastroesophageal reflux disease. Continue on Prilosec. 6. Continue with physical therapy. 7. Disposition. Currently awaiting rehab placement. cc: Brii Hudson MD
[2016-11-04] MEDS ORDERED: SOLU-MEDROL IV ONE (16:01)
[2016-11-04] MEDS: PERCOCET-10 PO PRN (16:54)
[2016-11-04] MEDS: LOVENOX SUBQ SCH ×2 (16:55→18:14)
[2016-11-04] MEDS: LEVEMIR SUBQ SCH (20:59)
[2016-11-04] MEDS: SENOKOT PO SCH (21:01)
[2016-11-05] MEDS: PERCOCET-10 PO PRN ×3 (03:56→12:45)
[2016-11-05] MEDS: HUMULIN R SUBQ SCH ×3 (05:55→12:50)
[2016-11-05] MEDS: PRILOSEC PO SCH ×2 (05:55→06:06)
[2016-11-05 06:24] LABS: AGAP 11; BUN 16 mg/dL (8-22); CALCIUM 8.4 mg/dL (8.8-10.2); CHLORIDE 99 mmol/L (98-107); COSMO 276; POTASSIUM 4.4 mmol/L (3.5-5.1); SODIUM 135 mmol/L (136-145); TCO2 25 mmol/L (25-35)
[2016-11-05 08:32] VITALS: BP 145/53
[2016-11-05] MEDS: TRENTAL PO SCH ×2 (08:40→12:46)
[2016-11-05] MEDS: ZOCOR PO SCH (08:42)
[2016-11-05] MEDS: ZETIA PO SCH (08:42)
[2016-11-05] MEDS: TOPROL XL PO SCH (08:42)
[2016-11-05] MEDS: PLAVIX PO SCH (08:43)
[2016-11-05] MEDS: LACTULOSE PO SCH (08:43)
[2016-11-05] MEDS: IMDUR PO SCH (08:43)
[2016-11-05] MEDS: PRINIVIL PO SCH (08:43)
[2016-11-05] MEDS: ASPIRIN EC PO SCH (08:43)
[2016-11-05] MEDS: LIPITOR PO SCH (08:43)
[2016-11-05] MEDS: ZYLOPRIM PO SCH (08:44)
[2016-11-05] MEDS: MIRALAX PO SCH (08:44)
--- NOTE | 2016-11-05 17:12 | DISCHARGE SUMMARY ---
ADMISSION DATE: 10/30/2016 DISCHARGE DATE: 11/05/2016 PERTINENT PROCEDURES: 1. 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 Moderate size joint effusion. 2. Chest, abdomen and pelvis CT showed pulmonary emphysema, bibasilar scarring and/or atelectasis but no evidence of acute chest pathology. Incidental abdominal and pelvic findings but no evidence of acute pathology. 3. Abdominal x-ray showed nonspecific abdomen. CONSULTATIONS: 1. Angel Singh MD with Orthopedics. 2. Reji Lemon MD with Gastroenterology. DISCHARGE DIAGNOSES: 1. Constipation 2. Hypertension 3. Left knee effusion 4. Diabetes mellitus type 2. 5. Gastroesophageal reflux disease. 6. Emphysema 7. Coronary artery disease history. HOSPITAL COURSE: Mr. Mandel is a 81-year-old male who carries a past medical history of diabetes, hypertension, coronary artery disease, diabetic neuropathy, diabetes mellitus, peripheral vascular disease and gout. He presented to the ED after having a fall. He reported the he did fall with a slip. He did not lose consciousness or have any syncopal episode. He slipped on a rug and fell backwards causing an awkward movement and strain on his left knee. He did not land on his knee, he landed on his right hip pain but he continued to have pain in his left knee with a large amount of swelling that limited his mobility. X-ray imaging done in the ED did not show fracture but did show a huge joint effusion. Patient was admitted for pain control as well as orthopedic consultation. Dr. Singh did an aspiration of his knee and removed approximately 50 mL of bloody fluid. Physical therapy for range of motion and weightbearing was ordered. The only real treatment would be a total knee arthroplasty. He would like for the patient to go to rehabilitation and see how he progresses, and then consider an injection once things have calmed down. He will see him again in 2 weeks for a follow-up examination for further discussion about further treatment. While the patient was here he did complain of abdominal pain with some mild nausea. He was having some bowel movements. He was started on a bowel regimen. GI was consulted. He did have 2 good bowel movements and his GI symptoms much improved. Patient will continue on a bowel regimen. He has been accepted to rehabilitation and is appropriate for discharge today. VITAL SIGNS ON DISCHARGE: Temperature is 98.5 degrees, heart rate 68, respirations 20, blood pressure 145/53, O2 is 97% on room air. DISCHARGE DIET: Diabetic. DISCHARGE MEDICATIONS: Please see JUN. FOLLOWUP: Mr. Mandel is being discharged to rehabilitation. He will follow up with Dr. Singh in his office in 2 weeks. He can return to the ED for any worsening of symptoms. DISCHARGE TIME: 30 minutes. Dictated by CHAVEZ Irene for Brii Hudson MD cc: MD Perez Morillo MD MTDD
== END 2016-11-05 12:50 | disposition home or self-care (01) ==
LOC: SUPCPDRO → ED 12:42 → 4N 12:42 → SUATTDRO 16:37
PROVIDERS: ATTEND Internal Medicine